=== PATIENT | male | born 1990 | race African-American/Black ===

== ENCOUNTER 2021-03-07 10:56 | Emergency (ER) | payer SELFPAY ==
--- NOTE | 2021-03-07 11:30 | ED.SKABFB ---
HPI - Skin/Abscess/Foreign Bdy General Chief complaint: Skin/Abscess/Foreign Body Stated complaint: rash on hand Time Seen by Provider: 03/07/21 11:02 Source: patient Mode of arrival: ambulatory Limitations: no limitations History of Present Illness HPI narrative: Patient is a 30-year-old male who presents with skin complaints to bilateral hands and arms. He this problem has been going on for approximately 7 months. He reports being seen at urgent care twice in the past and given a cream . He is unsure what cream was prescribed. He reports while using cream symptoms subside but then return. He denies uses new soaps or detergents. He denies all other complaints at this time. He reports lesions are pruritic at times. MD complaint: rash Related Data Allergies Allergy/AdvReac Type Severity Reaction Status Date / Time No Known Allergies Allergy Verified 09/20/19 15:20 Review of Systems Review of Systems: Narrative: CONSTITUTIONAL: Denies fever, chills, or sweats. EYES: Denies visual changes, redness, or discharge. ENT: Denies rhinorrhea, congestion, sore throat, or otalgia. CARDIOVASCULAR: Denies chest pain, palpitations, or edema. RESPIRATORY: Denies cough or dyspnea. GASTROINTESTINAL: Denies abdominal pain, nausea, vomiting, or diarrhea. GENITOURINARY: Denies dysuria or hematuria. SKIN: Rash to bilateral hands MUSCULOSKELETAL: Denies back pain, joint pain, or myalgia. NEUROLOGIC: Denies headache, numbness, dizziness, or weakness. PSYCHIATRIC: Denies anxiety or depression. [facility] Past Medical History Medical History Femur fracture, right Social History Social History (Updated 03/07/21 @ 11:48 by LEEROY Sigala) Smoking status: Current every day smoker Tobacco type: cigarettes Alcohol intake: current Alcohol use details: Occasional Substance use: never Gender identity (if verbalized by the patient): Male Comments At the time of signature, I have reviewed and agree with nursing past medical, surgical, social, and family history unless otherwise noted. Please see nursing chart for further information. There is no relevant family history pertinent to the presenting complaint. Exam Narrative: Exam Narrative: GENERAL: Well-appearing, well-nourished, and in no acute distress. HEAD: Normocephalic, atraumatic. EYES: EOMI. No redness or drainage. Conjunctiva are normal. ENT: Mucous membranes pink and moist. CHEST: No respiratory distress. Clear to auscultation. HEART: Regular rate and rhythm. No murmur appreciated. Normal peripheral pulses. EXTREMITIES: Normal range of motion. No edema. SKIN: Pruritic area of erythema, oozing and crusting, and lichenification to right dorsal hand, small other areas of lesions. NEURO: No focal deficits. Alert and oriented x3. Gait steady. PSYCH: Normal affect. No signs of depression or anxiety. MDM - Skin/Abscess/Foreign Bdy Differential Diagnosis Differential diagnosis: Likely eczema, contact dermatitis and other (Psoriasis, dermatophytosis) Medical Records Attestation: I reviewed the patient's medical records. Critical Care Time Critical Care Time Critical Care Time: No Discharge Plan Discharge Clinical Impression: Atopic dermatitis Patient Disposition: Home, Self-Care Condition: Stable Instructions: Eczema (ED) Additional Instructions: Use cream as directed. If you develop increased warmth, redness, oozing or discharge, please return for further evaluation. Please follow-up with dermatology in 3 to 5 days Prescriptions: New triamcinolone acetonide 0.5 % cream 1 applic topical BID Qty: 15 RF: 0 Follow-up/Referrals: PHYSICIAN,STOCK MOVER [Primary Care Provider] - Alexander Romo M.D. [Physician] - Osmar Tillman MD [Physician] - Time of Disposition: 12:09
[2021-03-07 12:06] VITALS: BP 114/78; PULSE 94; RESP 17; TEMP 36.6; O2SAT 97
== END 2021-03-07 12:25 | disposition home or self-care (01) ==
PROVIDERS: Emergency Provider Nurse Practitioner
DX: L20.9 Atopic dermatitis, unspecified (principal); F17.210 Nicotine dependence, cigarettes, uncomplicated
CPT/HCPCS: 99283

== ENCOUNTER 2021-04-05 09:09 | Emergency (ER) | payer SELFPAY ==
[2021-04-05 09:16] VITALS: BP 131/78; PULSE 72; RESP 18; TEMP 36.7; O2SAT 100
--- NOTE | 2021-04-05 09:54 | ED.GENADULT ---
HPI - General Adult General Chief complaint: Unspecified Stated complaint: fungal skin condition, needs cream refill Time Seen by Provider: 04/05/21 09:17 History of Present Illness HPI narrative: Patient is a 30-year-old male who presents ER with rash to his hands bilaterally. Recently diagnosed with eczema versus psoriasis. He was prescribed triamcinolone cream. Reports he had great results with this cream and he has run out. Over the last 4 days after 31 March he began developing rash over the back of his right hand and within the webspaces of both hands bilaterally. He also has cracking along the third digit of the right hand. No fevers or chills or sweats. No drainage. No lymphangitic streaking. Related Data Allergies Allergy/AdvReac Type Severity Reaction Status Date / Time No Known Allergies Allergy Verified 04/05/21 09:19 Review of Systems Review of Systems: All systems reviewed & are unremarkable except as noted in HPI and below Constitutional: Constitutional: Denies chills and Denies fever(s) Integumentary/Breasts: Skin/Breast: Denies erythema, Reports rash, Denies skin swelling and Denies unusual bruising Neurologic: Denies focal weakness, Denies numbness and Denies tingling PMFSH Past Medical History Medical History (Updated 04/05/21 @ 09:58 by Royal Ashton MD) Eczema Femur fracture, right Social History Social History (Updated 03/07/21 @ 11:48 by LEEROY Sigala) Smoking status: Current every day smoker Tobacco type: cigarettes Alcohol intake: current Alcohol use details: Occasional Substance use: never Gender identity (if verbalized by the patient): Male Exam Narrative: Exam Narrative: GENERAL: Well-appearing, well-nourished, and in no acute distress. HEAD: Normocephalic, atraumatic. EXTREMITIES: Normal range of motion. No edema. SKIN: Warm, dry. Eczema type rash to the right hand with thickening of the skin and darkening of the skin. There are some nodules associated with this. Similar rash going up the third digit with some cracks of the skin without bleeding or drainage. Webspaces of bilateral hands affected as well. Spares the palms. Does not move proximal to the wrist. NEURO: Alert and oriented x3. PSYCH: Normal mood and affect. Course Course Emergency Course: Patient has follow-up scheduled with dermatology in the next couple weeks in [facility]. Will prescribe triamcinolone. Discharge home. Vital Signs Vital signs: Vital Signs Temperature 98.1 F 04/05/21 09:16 Pulse Rate 72 04/05/21 09:16 Respiratory Rate 18 04/05/21 09:16 Blood Pressure 131/78 04/05/21 09:16 Pulse Oximetry 100 04/05/21 09:16 Temperature 98.1 F 04/05/21 09:16 Pulse Rate 72 04/05/21 09:16 Respiratory Rate 18 04/05/21 09:16 Blood Pressure 131/78 04/05/21 09:16 Pulse Oximetry 100 04/05/21 09:16 Medical Decision Making Vital Signs Vital Signs: Vital Signs Temperature 98.1 F 04/05/21 09:16 Pulse Rate 72 04/05/21 09:16 Respiratory Rate 18 04/05/21 09:16 Blood Pressure 131/78 04/05/21 09:16 Pulse Oximetry 100 04/05/21 09:16 Temperature 98.1 F 04/05/21 09:16 Pulse Rate 72 04/05/21 09:16 Respiratory Rate 18 04/05/21 09:16 Blood Pressure 131/78 04/05/21 09:16 Pulse Oximetry 100 04/05/21 09:16 Discharge Plan Discharge Clinical Impression: Eczema Patient Disposition: Home, Self-Care Condition: Stable Instructions: Eczema (ED) Additional Instructions: Return the ER if you have fever over 100.4 ?F, you have redness and swelling of your hands, you have additional concerns. Please follow-up with your primary care doctor or your account analyst for any additional refills. Prescriptions: New triamcinolone acetonide 0.1 % cream 1 applic topical BID Qty: 30 RF: 0 No Action triamcinolone acetonide 0.5 % cream 1 applic topical BID Qty: 15 RF: 0 Follow-up/Referrals: [facility]
== END 2021-04-05 10:20 | disposition home or self-care (01) ==
LOC: ANHED 10:12
PROVIDERS: Emergency Provider Emergency Medicine
DX: L30.9 Dermatitis, unspecified (principal); F17.210 Nicotine dependence, cigarettes, uncomplicated
CPT/HCPCS: 99283

== ENCOUNTER 2024-02-02 21:46 | Emergency (ER) | payer SELFPAY ==
[2024-02-02 21:47] VITALS: BP 144/84; PULSE 68; RESP 15; TEMP 36.1; O2SAT 99
[2024-02-02 21:59] LABS: Basophils Percent Auto 0.2 % (0.2-1.2); Eosinophils Percent Auto 0.1 % (0-4.4); Hematocrit 46.5 % (42.0-52.0); Hemoglobin 15.5 g/dL (14.0-18.0); Immature Granulocyte Absolute 0.04 K/mm3 (0.00-0.031); Immature Granulocyte Percent A 0.4 % (0-0.5); Lymphocytes Absolute Auto 2.04 K/mm3 (0.9-3.2); Lymphocytes Percent Auto 21.9 % (18.3-44.2); Mean Corpuscular HGB Conc 33.3 g/dl (32-36); Mean Corpuscular Hemoglobin 29.2 pg (26-34); Mean Corpuscular Volume 87.7 fl (80-100); Mean Platelet Volume 10.6 fl (7.4-10.4); Monocytes Absolute Auto 0.7 K/mm3 (0.1-0.6); Monocytes Percent Auto 7.4 % (2.6-8.5); Neutrophils Absolute Auto 6.5 K/mm3 (1.3-6.7); Platelet Count Result 241 k/mm3 (150-375); Red Cell Distribution Width 13.2 % (11.5-14.5); White Blood Count 9.3 K/mm3 (4.5-10.0)
[2024-02-02 22:09] LABS: Alanine Aminotransferase 39 U/L (6-50); Alkaline Phosphatase 114 U/L (38-126); Anion Gap 12 mmol/L (4-12); Aspartate Amino Transferase 28 U/L (17-59); Bilirubin,Total 0.5 mg/dL (0.2-1.3); Blood Urea Nitrogen 18 mg/dL (9-20); Carbon Dioxide 23 mmol/L (22-30); Chloride 104 mmol/L (98-107); Estimated CRCL calculation 104 ml/min; Estimated Glomerular Filt Rate > 60; Glucose 130 mg/dL (65-110); Lipase 107 U/L (23-300); Potassium 3.9 mmol/L (3.4-5.0); Sodium 139 mmol/L (137-145)
[2024-02-02 22:44] LABS: Appearance Urine Turbid (Clear); Bacteria Urine None Seen /hpf; Bilirubin Urine Negative (Negative); Blood Urine Negative (Negative); Color Urine Yellow (Yellow); Glucose Urine UA Negative (Negative); Ketones Urine Trace mg/dL (Negative); Leukocyte Esterase Ur Negative LEU/UL (Negative); Nitrate Urine Negative (Negative); Non Pathogenic Casts 0-2; Protein Urine Trace mg/dL (Negative); RBC Urine 0-2 /hpf (0-2); Specific Grav Ur 1.025 (1.001-1.035); Squamous Epithelial Cell Urine None Seen /hpf (Few); WBC Urine 0-5 /hpf (0-3)
[2024-02-02 22:52] LABS: Add Urine Microscopic? YES
--- NOTE | 2024-02-02 23:49 | PC.NURSE ---
Patient called out for for new set of vitals. No answer
--- NOTE | 2024-02-03 00:08 | PC.NURSE ---
Patient again called out for vital in triage area. No answer.
== END 2024-02-02 23:49 | disposition left against medical advice (07) ==
PROVIDERS: Emergency Provider Emergency Medicine
DX: R10.10 Upper abdominal pain, unspecified (principal)
CPT/HCPCS: 36415; 80053; 81001; 83690; 85025; 99199

== ENCOUNTER 2025-06-26 09:57 | Emergency (ER) | payer SELFPAY ==
--- NOTE | ~2025-06-26 | XR_ITS ---
Examination: XR shoulder LT min 2V Clinical History: left shoulder pain, ANTERIOR/ SUPERIOR PAIN Comparison: None Technique: 4 views left shoulder Findings/impression: Unremarkable. 1. No fracture or dislocation left shoulder. 2. No significant degenerative changes Reviewed, dictated and finalized at location R.
[2025-06-26 10:05] VITALS: BP 137/84; PULSE 67; RESP 14; TEMP 36.4; O2SAT 98
--- NOTE | 2025-06-26 10:30 | ED.UPPEXIN ---
HPI - Extremity Injury (Upper) General Chief Complaint: Extremity Injury, Upper Stated Complaint: left shoulder injury Time Seen by Provider: 06/26/25 10:13 Source: patient Mode of arrival: ambulatory Limitations: no limitations History of Present Illness HPI narrative: This is a 34 year old male that presents to the ER for left shoulder pain. Ongoing since yesterday. Reports he reached into the backseat of his car and felt a pop. Has had pain and decreased ROM since. Related Data Allergies Allergy/AdvReac Type Severity Reaction Status Date / Time No Known Allergies Allergy Verified 06/26/25 10:09 Review of Systems Review of Systems: All systems reviewed & are unremarkable except as noted in HPI and below PMFSH Past Medical History Medical History (Updated 06/26/25 @ 11:40 by Jacinta Tarango PA-C) Eczema Femur fracture, right Social History Social History (System 07/29/23 @ 10:55 by Leticia Bernal) Smoking status: Current every day smoker Tobacco type: cigarettes Alcohol intake: current Alcohol use details: Occasional Substance use: never Gender identity (if verbalized by the patient): Male Exam Narrative: GENERAL: Well-appearing, well-nourished, and in no acute distress. HEAD: Normocephalic, atraumatic. EYES: EOMI. EXTREMITIES: Decreased active ROM in the left shoulder due to pain. No edema or obvious deformity. Normal radial pulse. Normal sensation SKIN: Warm, dry, no rash. NEURO: No focal deficits. Alert and oriented x3. PSYCH: Normal mood and affect Course Vital Signs Vital signs: Vital Signs Temperature 97.6 F 06/26/25 10:05 Pulse Rate 67 06/26/25 10:05 Respiratory Rate 14 06/26/25 10:05 Blood Pressure 137/84 06/26/25 10:05 Pulse Oximetry 98 06/26/25 10:05 Oxygen Delivery Room Air 06/26/25 10:05 Temperature 97.6 F 06/26/25 10:05 Pulse Rate 67 06/26/25 10:05 Respiratory Rate 14 06/26/25 10:05 Blood Pressure 137/84 06/26/25 10:05 Pulse Oximetry 98 06/26/25 10:05 Oxygen Delivery Room Air 06/26/25 10:05 MDM - Extremity Injury (Upper) MDM Narrative Medical decision making narrative: Patient presents to the emergency department for left shoulder pain after reaching back behind him yesterday. He is neurovascularly intact. Left shoulder x-ray without acute abnormalities. Patient updated on his workup and agrees with plan of care. Will be given follow-up with orthopedic surgery, was given warnings to return to the ER Differential Diagnosis Differential diagnosis: Likely dislocation of shoulder and other (Shoulder sprain) Imaging Data Radiologist's impression: Examination: XR shoulder LT min 2V Findings/impression: Unremarkable. 1. No fracture or dislocation left shoulder. 2. No significant degenerative changes Critical Care Time Critical Care Time Critical Care Time: No Discharge Plan Discharge Clinical Impression: Sprain of left shoulder Qualifiers: Encounter type: initial encounter Shoulder sprain type: unspecified sprain Qualified Code(s): S43.402A - Unspecified sprain of left shoulder joint, initial encounter Patient Disposition: Home Condition: Stable Instructions: Shoulder Sprain (ED) Additional Instructions: Return to the ER if you experience fever, redness and swelling of your extremity, numbness or any other symptoms that are concerning to you Wear sling. No weight on the affected extremity. Ice and elevate extremity. Pain medication as needed and directed. Follow up with orthopedics for further care. Patient Language: Japanese Prescriptions: No Action triamcinolone acetonide 0.1 % cream 1 applic topical BID Qty: 30 0RF triamcinolone acetonide 0.5 % cream 1 applic topical BID Qty: 15 0RF Follow-up/Referrals: PHYSICIAN NOT ON STAFF,NONSTAFF [Primary Care Provider] Cristhian Blankenship MD [Physician, Orthopedics]
== END 2025-06-26 12:02 | disposition home or self-care (01) ==
PROVIDERS: Emergency Provider Physician Assistant
DX: S43.402A Unspecified sprain of left shoulder joint, initial encounter (principal); X50.0XXA Overexertion from strenuous movement or load, initial encounter; F17.210 Nicotine dependence, cigarettes, uncomplicated
CPT/HCPCS: 73030; 99283; A4565